=== PATIENT | male | born 2000 | race Caucasian/White ===

== ENCOUNTER 2020-12-21 15:48 | Outpatient (CLI) | payer OTHER ==
--- NOTE | 2020-12-21 17:07 | XRAY Report ---
PROCEDURE: Knee 3 View LT INDICATIONS: CONTUSION OF L KNEE TECHNIQUE: 3 views of the left knee(s) were acquired. COMPARISON: None. FINDINGS: Bones: No fractures or dislocations. No suspicious bony lesions. The tibial tuberosity is prominen t however no acute fracture is identified. Soft tissues: No joint effusion. No suspicious soft tissue calcifications. IMPRESSION: No acute abnormality of the left knee. Reviewed by: Sandoval Patton on 12/21/2020 5:06 PM PDT Approved by: Sandoval Patton on 12/21/2020 5:06 PM PDT Station ID: [id number]
== END 2020-12-21 23:59 | disposition home or self-care (01) ==
LOC: DI.N 15:48
PROVIDERS: ATTEND Family Medicine
DX: S80.02XA Contusion of left knee, initial encounter (principal)